=== PATIENT | female | born 1930 | race Two or more races ===

== ENCOUNTER 2018-07-29 05:29 | Emergency (ER) | payer OTHER ==
[2018-07-29] MEDS ORDERED: HYDROCODONE/APAP 5/325 TAB PO ONE (05:57)
--- NOTE | 2018-07-29 06:01 | EDPHY ---
H & P Stated Complaint: left shoulder pain Time Seen by Provider: 07/29/18 05:42 HPI/ROS: History obtained using Czech video interpretation with family at the bedside. HPI The patient presents with left-sided shoulder pain which she awoke with this morning which is severe, within her anterior shoulder though radiates toward her elbow, is achy in nature and worse with movement of her shoulder in any direction. She does not have any numbness or tingling of her arm. Yesterday she underwent phlebotomy for testing of her cholesterol levels in her antecubital region of her left arm. About 1 week ago she had influenza and Prevnar vaccinations given into her left deltoid. She has a longstanding history of left-sided shoulder pain, about 5 years ago while in [place] she had some sort of a mass removed from her shoulder and has had pain ever since. She does not have any chest pain or shortness of breath. She tried taking ibuprofen at home without any improvement in her symptoms.. REVIEW OF SYSTEMS 10 systems were reviewed and negative with the exception of the elements mentioned in the history of present illness. PMHx: Hypertension, diabetes Soc Hx: Housed, originally from [place], lives with her family here in [place] PHYSICAL General Appearance: Alert, no distress Eyes: Pupils equal and round no pallor or injection ENT, Mouth: Mucous membranes moist Respiratory: There are no retractions, lungs are clear to auscultation Cardiovascular: Regular rate and rhythm Gastrointestinal: Abdomen is soft and non-tender, no masses, bowel sounds normal Neurological: A&O, moves all extremities Skin: Warm and dry, no rashes Musculoskeletal: Neck is supple non tender Extremities: Left shoulder is tender anteriorly, there is no obvious joint effusion, there is no edema of her arm or forearm, there is limited range of motion of the shoulder joint secondary to pain, there is full range of motion of her elbow and wrist, there is 2+ radial pulses, there is full range of motion of her fingers and sensation is intact to light touch throughout Psychiatric: Patient is oriented X 3, there is no agitation Source: Patient, Family Exam Limitations: No limitations - Medical/Surgical History Hx Asthma: No Hx Chronic Respiratory Disease: No Hx Diabetes: Yes Hx Cardiac Disease: No Hx Renal Disease: No Hx Cirrhosis: No Hx Alcoholism: No Hx HIV/AIDS: No Hx Splenectomy or Spleen Trauma: No Other PMH: high BP, diabetes - Social History Smoking Status: Never smoked Constitutional: Initial Vital Signs Temperature (C) 36.6 C 07/29/18 05:33 Heart Rate 95 07/29/18 05:33 Respiratory Rate 20 07/29/18 05:33 Blood Pressure 219/94 H 07/29/18 05:33 O2 Sat (%) 91 L 07/29/18 05:33 O2 Delivery Mode Room Air Allergies/Adverse Reactions: No Known Allergies Allergy (Unverified 07/29/18 05:33) Home Medications: Medication Instructions Recorded Hydrocodone/APAP 5/325 [[place] 1 - 2 tab PO Q6H PRN #15 tab 07/29/18 5/325 (*)] Medical Decision Making - Diagnostics Imaging Results: X-ray left shoulder three view shows osteoarthritis, interpreted by me, radiology interpretation is pending. Imaging: I viewed and interpreted images myself Differential Diagnosis: 87-year-old female presents with left shoulder pain which she awoke with this morning which is severe. She has a previous history of years of mild left- sided shoulder pain after some sort of mass removal from her left shoulder 5 years ago. Here, she does have tenderness of the anterior joint with limited range of motion secondary to pain. She did have phlebotomy performed in her arm yesterday, however I do not appreciate any signs of superficial thrombophlebitis. My differential includes rotator cuff injury versus calcific tendinosis. I have considered cardiac cause, however without any chest pain or shortness of breath and tenderness of her joint I do not feel this is likely. In the emergency department, x-ray was performed. Patient was given medication for pain. It appears that she has osteoarthritis. She may have rotator cuff injury as well. Her pain improved with pain medication on reassessment. I will place her in a sling for the next 2-3 days. I will give her pain medication. I recommended that she follow up with her primary care doctor if she is not feeling better for possible orthopedic referral. - Data Points Medications Given: Discontinued Medications Hydrocodone Bitart/Acetaminophen ([place] 5/325) 1 tab PO EDNOW ONE Stop: 07/29/18 05:58 Last Admin: 07/29/18 06:02 Dose: 1 tab Departure - Departure Disposition: Home, Routine, Self-Care Clinical Impression: Left shoulder pain, HTN (hypertension) Condition: Good Instructions: Shoulder Sprain (ED) Additional Instructions: I recommend you wear the sling for the next 2-3 days to help with your pain. You can use an ice pack on it for 20 min at a time several times a day. You should take ibuprofen 400 mg every 6 hr for pain. If you still have pain after this, you can take the pain pill I have prescribed to you. Please follow-up with your primary care doctor in 1 week if your pain continues. Your blood pressure was very high today. You should follow up with your doctor about this soon. Te recomiendo que uses el cabestrillo nidia los prximos 2 o 3 jin para aliviar el dolor. Puede usar alyssa bolsa de hielo nidia 20 minutos a la vez varias veces al da. Debe elmer ibuprofeno 400 mg cada 6 h para el dolor. Si a n tiene dolor despus de esto, puede elmer la pastilla para el dolor que le recet. Por favor, mukund un seguimiento con steele mdico de atencin primaria en 1 semana si steele dolor contina. Tu presin arterial era muy calin hoy. Debera hacer un seguimiento con steele m dico acerca de esto pronto. Referrals: [facility],. [Clinic] - As per Instructions Prescriptions: Hydrocodone/APAP 5/325 [[place] 5/325 (*)] 1 - 2 tab PO Q6H PRN #15 tab PRN Reason: Pain, Severe Print Language: Czech
[2018-07-29 07:17] VITALS: BP 159/85
== END 2018-07-29 07:16 | disposition home or self-care (01) ==
DX: M19.012 Primary osteoarthritis, left shoulder (principal); I10 Essential (primary) hypertension
CPT/HCPCS: A4565